=== PATIENT | male | born 1945 | race African-American/Black ===

== ENCOUNTER 2017-01-19 09:47 | Emergency (ER) | payer MEDICAID, OTHER ==
[~2017-01-19] VITALS: Ht 182.9 cm; Wt 120.0 kg
[~2017-01-19 09:47] MED LIST: 1-ME1LIQ PO; ASPI81 PO; CARV6.25 PO; ENAL20TA PO; TRAM50 PO; ZOCO40TA PO
[2017-01-19 09:49] VITALS: BP 138/89; PULSE 72; RESP 15; TEMP 97.8; O2SAT 95
[2017-01-19 11:00] VITALS: BP 146/91; PULSE 84; RESP 16; O2SAT 99
[2017-01-19] MEDS ORDERED: SODIUM CHLOR 0.9% 1000 ML INJ 1,000 ML IV SCH (11:10)
[2017-01-19] MEDS ORDERED: HYDR-3535 PO (11:53)
[2017-01-19] MEDS ORDERED: SIMV40TA PO (11:53)
[2017-01-19] MEDS ORDERED: ASPI-110 PO (11:53)
[2017-01-19] MEDS ORDERED: AMLO10TA2 PO (11:53)
[2017-01-19] MEDS ORDERED: ENAL20TA PO (11:53)
[2017-01-19] MEDS ORDERED: CARV6.252 PO (11:53)
[2017-01-19 12:05] LABS: ALT (GPT) 35 U/L (12-78); ANION GAP 11 MEQ/L (5-15); AST (GOT) 36 U/L (15-37); BICARBONATE 23.3 MEQ/L (21.0-32.0); BLOOD UREA NITROGEN 14 MG/DL (7-18); CHLORIDE 101 MEQ/L (98-107); GLOMERULAR FILTRATION RATE 74 ML/MIN (>89); SODIUM (NA) 135 MEQ/L (136-145)
[2017-01-19 12:06] LABS: POTASSIUM 4.5 MEQ/L (3.5-5.1)
[2017-01-19 12:11] LABS: ALKALINE PHOSPHATASE 113 U/L (45-117)
[2017-01-19] MEDS ORDERED: MORPHINE SULFATE 4 MG/ML INJ IV PUSH ONE (12:15)
[2017-01-19] MEDS ORDERED: ONDANSETRON HCL 4 MG/2 ML VIAL IV PUSH ONE (12:15)
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
[2017-01-19 12:17] LABS: BLOOD, URINE NEG (NEG); COMMENT (UR) CULT NOT INDICATED; CULTURE IF INDICATED CULT NOT INDICATED; GLUCOSE,URINE 1000 mg/dL (NEG); KETONE, URINE 40 mg/dL (NEG); MUCUS URINE FEW /lpf (OCC); NITRITE,URINE NEG (NEG); SQUAMOUS EPITHELIAL CELL URINE 1 /hpf (0-5); URINE COLOR YELLOW (YELLW/STRAW)
[2017-01-19 13:25] VITALS: BP 130/82; PULSE 64; RESP 16; O2SAT 98
[2017-01-19 13:50] LABS: AUTOMATED NEUTROPHIL # 6.3 TH/MM3 (1.8-7.7); BASOPHIL # 0.1 TH/MM3 (0-0.2); BASOPHIL % 0.6 % (0.0-2.0); EOSINOPHIL # 0.1 TH/MM3 (0-0.4); EOSINOPHIL % 1.4 % (0.0-4.0); HEMATOCRIT 44.7 % (39.0-51.0); HEMO FLAGS DIFF FINAL; LYMPH % 17.5 % (9.0-44.0); LYMPHOCYTE # 1.5 TH/MM3 (1.0-4.8); MEAN CELL VOLUME 88.6 FL (80.0-100.0); MEAN CORPUSCULAR HEMOGLOBIN 29.9 PG (27.0-34.0); MEAN CORPUSCULAR HGB CONC 33.7 % (32.0-36.0); MONO % 7.2 % (0.0-8.0); NEUT % 73.3 % (16.0-70.0); PLATELET COUNT 180 TH/MM3 (150-450); RED BLOOD COUNT 5.04 MIL/MM3 (4.50-5.90); WHITE BLOOD COUNT 8.6 TH/MM3 (4.0-11.0)
[2017-01-19 14:00] LABS: PROTHROMBIN TIME - PATIENT 11.4 SEC (9.8-11.6)
[2017-01-19 14:01] LABS: APTT (PATIENT) 30.1 SEC (24.3-30.1)
[2017-01-19 16:00] VITALS: BP 125/81; PULSE 74; RESP 16; O2SAT 98
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
[2017-01-19] MEDS ORDERED: ZOFR4TAB PO (16:27)
--- NOTE | 2017-01-19 17:39 | PD ---
Physical Exam Date Seen by Provider: Jan 19, 2017 Time Seen by Provider: 12:30 Narrative I, Dr. Najera, have reviewed the advance practice practitioner's documentation and am in agreement, met with the patient face to face, made the diagnosis, and the medical decision making was done by me. *My assessment and Findings: Patient seen and evaluated with PA, please see PA note for further information. Patient is coming in because of abdominal pain and elevated blood sugars. He is a new onset diabetic. On my exam, patient is not in any acute distress. Abdomen is nontender, soft, fairly benign. His pulmonary and cardiac enzymes are unremarkable. He is awake, alert, oriented 3. Laboratory Tests Test 01/19/17 01/19/17 01/19/17 11:25 11:55 13:25 Sodium Level 135 MEQ/L (136-145) Estimat Glomerular Filtration 74 ML/MIN (>89) Rate Random Glucose 254 MG/DL (74-106) Urine Glucose (UA) 1000 mg/dL (NEG) Urine Ketones 40 mg/dL (NEG) Urine Mucus FEW /lpf (OCC) Neutrophils (%) (Auto) 73.3 % (16.0-70.0) Last 24 hours Impressions Abdomen/Pelvis CT 01/19/17 0000 Signed Impressions: Service Date/Time: Thursday, January 19, 2017 15:33 - CONCLUSION: 1. There is a 10 cm segment of dilated small bowel in the upper pelvis likely representing either distal jejunum or proximal ileum. I do not see a definite transition point and this does not appear to represent a closed-loop obstruction. Significance of this finding is uncertain. Suggest followup if symptoms persist. 2. There is a small volume of nonspecific free fluid in the abdomen and pelvis. 3. Nonacute findings include severe hepatic steatosis, cholelithiasis, small hiatal hernia , 4.1 cm left renal cyst, and sigmoid diverticulosis. Pacheco Camacho MD Lab work shows hyperglycemia but does not show any signs of an ankle Elevation or signs of DKA. CAT scan shows some small bowel dilatation but no significant signs for obstruction or other acute processes. Abdomen is fairly benign and I do not suspect an acute intra-abdominal process. Patient did not have further episodes of vomiting in the ER. And at this point, he was given IV fluids and insulin and my plan would be to release the patient with follow-up to primary care physician with continued use of his diabetes medications. Return for any worsening in symptoms as necessary. The plan was discussed with the patient he states understanding. Data Data Last Documented VS Vital Signs Date Time Temp Pulse Resp B/P Pulse Ox O2 Delivery O2 Flow Rate FiO2 01/19/17 16:00 74 16 125/81 98 Room Air 01/19/17 09:49 97.8 Orders Complete Blood Count With Diff (01/19/17 11:10) Comprehensive Metabolic Panel (01/19/17 11:10) Lipase (01/19/17 11:10) Prothrombin Time / Inr (Pt) (01/19/17 11:10) Act Partial Throm Time (Ptt) (01/19/17 11:10) Urinalysis - C+S If Indicated (01/19/17 11:10) Iv Access Insert/Monitor (01/19/17 11:10) Ecg Monitoring (01/19/17 11:10) Oximetry (01/19/17 11:10) Sodium Chlor 0.9% 1000 Ml Inj (Ns 1000 M (01/19/17 11:10) Morphine Inj (Morphine Inj) (01/19/17 12:15) Ondansetron Inj (Zofran Inj) (01/19/17 12:15) Vascular Access Team Consult PRN (01/19/17 12:28) Vascular Poc Ultrasound (01/19/17 ) Ct Abd/Pel W/O Iv Contrast (01/19/17 ) Blood Glucose (01/19/17 16:18) Labs Laboratory Tests Test 01/19/17 01/19/17 01/19/17 11:25 11:55 13:25 Sodium Level 135 MEQ/L Potassium Level 4.5 MEQ/L Chloride Level 101 MEQ/L Carbon Dioxide Level 23.3 MEQ/L Anion Gap 11 MEQ/L Blood Urea Nitrogen 14 MG/DL Creatinine 1.17 MG/DL Estimat Glomerular Filtration 74 ML/MIN Rate Random Glucose 254 MG/DL Calcium Level 9.1 MG/DL Total Bilirubin 1.0 MG/DL Aspartate Amino Transf 36 U/L (AST/SGOT) Alanine Aminotransferase 35 U/L (ALT/SGPT) Alkaline Phosphatase 113 U/L Total Protein 7.3 GM/DL Albumin 3.9 GM/DL Lipase 77 U/L Urine Color YELLOW Urine Turbidity CLEAR Urine pH 6.0 Urine Specific [place] 1.019 Urine Protein TRACE mg/dL Urine Glucose (UA) 1000 mg/dL Urine Ketones 40 mg/dL Urine Occult Blood NEG Urine Nitrite NEG Urine Bilirubin NEG Urine Urobilinogen LESS THAN 2.0 MG/DL Urine Leukocyte Esterase NEG Urine RBC LESS THAN 1 /hpf Urine WBC 1 /hpf Urine Squamous Epithelial 1 /hpf Cells Urine Mucus FEW /lpf Microscopic Urinalysis Comment CULT NOT INDICATED White Blood Count 8.6 TH/MM3 Red Blood Count 5.04 MIL/MM3 Hemoglobin 15.1 GM/DL Hematocrit 44.7 % Mean Corpuscular Volume 88.6 FL Mean Corpuscular Hemoglobin 29.9 PG Mean Corpuscular Hemoglobin 33.7 % Concent Red Cell Distribution Width 14.0 % Platelet Count 180 TH/MM3 Mean Platelet Volume 9.4 FL Neutrophils (%) (Auto) 73.3 % Lymphocytes (%) (Auto) 17.5 % Monocytes (%) (Auto) 7.2 % Eosinophils (%) (Auto) 1.4 % Basophils (%) (Auto) 0.6 % Neutrophils # (Auto) 6.3 TH/MM3 Lymphocytes # (Auto) 1.5 TH/MM3 Monocytes # (Auto) 0.6 TH/MM3 Eosinophils # (Auto) 0.1 TH/MM3 Basophils # (Auto) 0.1 TH/MM3 CBC Comment DIFF FINAL Differential Comment Prothrombin Time 11.4 SEC Prothromb Time International 1.0 RATIO Ratio Activated Partial 30.1 SEC Thromboplast Time [facility] Medical Record Reviewed: Yes Supervised Visit with RANDY: Yes Diagnosis Primary Impression: Hyperglycemia due to type 2 diabetes mellitus Qualified Code: E11.65 - Type 2 diabetes mellitus with hyperglycemia, without long-term current use of insulin Additional Impression: Abdominal pain Qualified Code: R10.30 - Lower abdominal pain Patient Instructions: General Instructions, Type 2 Diabetes in Adults (ED), Abdominal Pain (ED), Diabetic Hyperglycemia (ED) Departure Forms: Tests/Procedures Additional Instruction: Continue taking medications as prescribed. Follow-up with PCP. See ED for any worsening symptoms. You sugars will eventually become more regular, it will take some time for her sugars to be come more normal. Scripts Ondansetron (Zofran)4 Mg Tab4 Mg PO Q6HR PRN (NAUSEA OR VOMITING) #20 TAB Prov:Lashay Najera MD 01/19/17 Disposition: 01 DISCHARGE HOME Condition: Stable Lashay Najera MD Jan 19, 2017 17:39
== END 2017-01-19 18:00 | disposition home or self-care (01) ==
LOC: NEPE 09:47
DX: E11.65 Type 2 diabetes mellitus with hyperglycemia (principal); R10.30 Lower abdominal pain, unspecified; R11.2 Nausea with vomiting, unspecified; I25.10 Atherosclerotic heart disease of native coronary artery without angina pectoris; I10 Essential (primary) hypertension; I25.2 Old myocardial infarction; Z87.442 Personal history of urinary calculi; Z79.4 Long term (current) use of insulin; Z87.891 Personal history of nicotine dependence
CPT/HCPCS: 74176; 80053; 81001; 83690; 85025; 85610; 85730; 96361; 96374; 96375; 99285; J2270; J2405; J7030